=== PATIENT | female | born 1950 | race Caucasian/White ===

== ENCOUNTER 2022-12-12 14:25 | Emergency (ER) | payer MEDICARE, OTHER ==
[~2022-12-12] VITALS: Ht 165.1 cm; Wt 72.6 kg
[2022-12-12] MEDS ORDERED: KETOROLAC TROMETHAMINE INJ 30 MG/ML VIAL ONE (15:09)
[2022-12-12] MEDS ORDERED: CYCLOBENZAPRINE 10 MG TABLET ONE (15:09)
[2022-12-12] MEDS: KETOROLAC TROMETHAMINE INJ 60 MG/2 ML VIAL IM ONE (15:15)
[2022-12-12] MEDS: CYCLOBENZAPRINE 10 MG TABLET PO ONE (15:15)
[2022-12-12] MEDS ORDERED: CYCL5TAB PO (16:48)
[2022-12-12] MEDS ORDERED: ACETAMINOPHEN ES 500 MG TABLET ONE (17:13)
[2022-12-12 17:19] VITALS: BP 128/73; TEMP 98.1; O2SAT 99
[2022-12-12] MEDS ORDERED: ACETAMINOPHEN ES 500 MG TABLET PO ONE (17:30)
== END 2022-12-12 17:20 | disposition home or self-care (01) ==
LOC: ER 14:25
DX: M54.50 Low back pain, unspecified (principal); I10 Essential (primary) hypertension; Z60.2 Problems related to living alone
CPT/HCPCS: 99283; 96372; 72110; J1885